=== PATIENT | male | born 1980 | race African-American/Black ===

== ENCOUNTER 2017-08-10 09:43 | Emergency (ER) | payer OTHER ==
[~2017-08-10] VITALS: Ht 180.3 cm; Wt 76.0 kg
[2017-08-10] MEDS ORDERED: MOTRIN400 MG PO (12:22)
[2017-08-10] MEDS ORDERED: CYCLOBENZAPR5 MG PO (12:22)
[2017-08-10 12:28] VITALS: BP 130/87
== END 2017-08-10 12:35 | disposition home or self-care (01) | DRG 552 ==
LOC: ED 09:43
DX: M54.5 Low back pain (principal); M62.830 Muscle spasm of back; F17.210 Nicotine dependence, cigarettes, uncomplicated

== ENCOUNTER 2017-12-24 06:17 | Emergency (ER) | payer SELFPAY ==
[~2017-12-24] VITALS: Ht 180.3 cm; Wt 76.4 kg
[~2017-12-24 06:17] MED LIST: CYCLOBENZAPR5 MG PO; MOTRIN400 MG PO
[2017-12-24] MEDS ORDERED: ZITHROMAX250 MG PO (06:45)
[2017-12-24] MEDS ORDERED: PROVENTIL HFA IN (06:45)
[2017-12-24 07:00] VITALS: BP 133/84
== END 2017-12-24 07:00 | disposition home or self-care (01) | DRG 153 ==
LOC: ED 06:17
DX: J32.9 Chronic sinusitis, unspecified (principal); F17.200 Nicotine dependence, unspecified, uncomplicated; J40 Bronchitis, not specified as acute or chronic; R09.81 Nasal congestion; R05 Cough

== ENCOUNTER 2018-02-02 07:14 | Emergency (ER) | payer SELFPAY ==
[~2018-02-02] VITALS: Ht 180.3 cm; Wt 88.0 kg
[~2018-02-02 07:14] MED LIST changes: +PROVENTIL HFA IN; +ZITHROMAX250 MG PO
[2018-02-02] MEDS ORDERED: ALL DAY10 MG PO (07:30)
[2018-02-02] MEDS ORDERED: FLONASE AL50 MCG/ACT NAB (07:30)
[2018-02-02] MEDS ORDERED: AUGMENTIN875TAB PO (07:30)
[2018-02-02 07:47] VITALS: BP 152/90
== END 2018-02-02 07:47 | disposition home or self-care (01) | DRG 153 ==
LOC: ED 07:14
DX: J32.0 Chronic maxillary sinusitis (principal); J32.2 Chronic ethmoidal sinusitis; R51 Headache; R09.81 Nasal congestion; R05 Cough

== ENCOUNTER 2018-02-11 05:13 | Emergency (ER) | payer SELFPAY ==
[~2018-02-11] VITALS: Ht 180.3 cm; Wt 76.6 kg
[~2018-02-11 05:13] MED LIST changes: +ALL DAY10 MG PO; +AUGMENTIN875TAB PO; +FLONASE AL50 MCG/ACT NAB
[2018-02-11] MEDS ORDERED: AMOXICILLIN500 MG PO (05:39)
[2018-02-11 05:53] VITALS: BP 129/94
== END 2018-02-11 05:56 | disposition home or self-care (01) | DRG 153 ==
LOC: ED 05:13
DX: J06.9 Acute upper respiratory infection, unspecified (principal); F17.210 Nicotine dependence, cigarettes, uncomplicated

== ENCOUNTER 2019-10-18 07:26 | Emergency (ER) | payer SELFPAY ==
[~2019-10-18 07:26] MED LIST changes: +AMOXICILLIN500 MG PO
[2019-10-18] MEDS ORDERED: AMOXICILLIN500 M2 PO (07:52)
[2019-10-18 08:02] VITALS: BP 128/77
== END 2019-10-18 08:12 | disposition home or self-care (01) | DRG 159 ==
LOC: ED 07:26
DX: K08.89 Other specified disorders of teeth and supporting structures (principal); F17.200 Nicotine dependence, unspecified, uncomplicated

== ENCOUNTER 2021-08-02 17:39 | Emergency (ER) | payer SELFPAY ==
[~2021-08-02] VITALS: Ht 180.3 cm; Wt 70.0 kg
[~2021-08-02 17:39] MED LIST changes: +AMOXICILLIN500 M2 PO
[2021-08-02 18:15] LABS: HEMATOCRIT 42.4 % (39.0-50.0); HEMOGLOBIN 14.3 g/dl (14.0-18.0); IMMATURE GRANULOCYTES 0.1 % (0.0-5.0); MEAN CELL VOLUME 94.9 fL CALC (80.0-100.0); MEAN CORPUSCULAR HGB CONC 33.7 g/dL CAL (32.0-36.0); NEUT# 6.08 thou/uL (1.82-7.42); RED BLOOD COUNT 4.47 mill/uL (4.70-6.10); RED CELL DISTRI WIDTH 13.8 % (11.5-15.5)
[2021-08-02 18:26] LABS: ALBUMIN 4.2 g/dL (3.2-5.0); ALKALINE PHOSPHATASE 59 u/l (38-126); ANION GAP 9 (6-22 (CALC)); BILIRUBIN, TOTAL 0.4 mg/dL (0.0-1.4); BUN 10 mg/dL (9-20); BUN/CREATININE RATIO 12 (12-20 (CALC)); CARBON DIOXIDE 29 mmol/l (22-30); CHLORIDE 106 mmol/l (95-108); CREATININE 0.8 mg/dL (0.7-1.3); GFR > 60 ML/MIN (>=60 (CALC)); GFR FOR AFR.AMER. > 60 ML/MIN (>=60 (CALC)); POTASSIUM 3.2 mmol/l (3.5-5.1); SGOT/AST 41 u/l (17-59); SODIUM 140 mmol/l (137-146); TOTAL PROTEIN 7.7 g/dL (6.3-8.2)
[2021-08-02 19:28] VITALS: BP 152/86
== END 2021-08-02 19:40 | disposition home or self-care (01) | DRG 313 ==
LOC: ED 17:39
PROVIDERS: Family Medicine
DX: R07.9 Chest pain, unspecified (principal); F17.210 Nicotine dependence, cigarettes, uncomplicated

== ENCOUNTER 2021-08-07 18:18 | Emergency (ER) | payer SELFPAY ==
[~2021-08-07] VITALS: Ht 180.3 cm; Wt 78.0 kg
[2021-08-07 19:13] VITALS: BP 130/89
== END 2021-08-07 19:16 | disposition home or self-care (01) | DRG 204 ==
LOC: ED 18:18
DX: R05.9 Cough, unspecified (principal); Z20.822 Contact with and (suspected) exposure to COVID-19

== ENCOUNTER 2024-09-23 23:23 | Emergency (ER) | payer SELFPAY ==
[~2024-09-23] VITALS: Ht 170.2 cm; Wt 73.0 kg
[2024-09-23] MEDS ORDERED: FLUORESCEIN SODIUM 1 MG EA OU ONE (23:35)
[2024-09-23] MEDS ORDERED: TETRACAINE HCL 0.5 %/4 ML SOL OU ONE (23:35)
[2024-09-23 23:37] VITALS: BP 142/91
[2024-09-23] MEDS ORDERED: GENTAMICIN0.3 % OD (23:49)
[2024-09-23] MEDS ORDERED: GENTAMICIN SULFATE (OPHTH) 5 ML BTL OD ONE (23:50)
[2024-09-24] VITALS: BP 128/88
== END 2024-09-24 00:04 | disposition home or self-care (01) | DRG 125 ==
LOC: ED 23:23
DX: S05.01XA Injury of conjunctiva and corneal abrasion without foreign body, right eye, initial encounter (principal); X58.XXXA Exposure to other specified factors, initial encounter